=== PATIENT | female | born 1980 | race Caucasian/White ===

== ENCOUNTER → 2019-01-17 | Outpatient (CLI) | payer MEDICAID, OTHER ==
[~2019-01-17] MED LIST: BUSP10TA PO; ESCITALOPRAM OX20 MG PO; MELO15TA23 PO; TRAM50TA PO
== END | disposition home or self-care (01) ==
LOC: PNCL 10:13
PROVIDERS: ATTEND Anesthesiology
DX: M54.5 Low back pain (principal)
CPT/HCPCS: G0463

== ENCOUNTER → 2019-03-07 | Outpatient (CLI) | payer MEDICAID, OTHER ==
--- NOTE | 2019-03-07 20:11 | PAIN ---
DATE OF SERVICE: 03/07/2019 INITIAL CONSULTATION FOR PAIN CLINIC CHIEF COMPLAINT: Low back and right lower extremity pain. HISTORY OF PRESENT ILLNESS: This is a 38-year-old female who presents with history of pain, low back, right lower extremity since 12/19/2018. She was working at work was pulling a pallet chapincito, which was difficult and when it moved, she had significant pain in her low back and right leg. The patient reports after that time, the pain began radiating in the posterior gluteus, posterior thigh, posterior calf, into the foot and toes with numbness and tingling in the feet as well. The patient reports it is constant, sharp, stabbing, throbbing, shooting, radiating, worse with walking, standing, changing positions, awakens her from sleep at least 3-4 times a night. Does not affect her bowel or bladder control, but does affect her ability to walk, it gives significant fatigability of the right lower extremity. The patient reports no loss of motor function, but significant fatigue even after about 5-10 minutes, being on her feet or standing and walking. The patient did have an MRI scan of the lumbar spine showing L5-S1 right focal paracentral disk protrusion with exerting mass effect upon the right S1 nerve root with mild right foraminal stenosis. The patient rates her disability from 0-10, 10 being the worst, as an 8 in all categories, family home responsibilities, recreation, social activity, sexual behavior, occupation, self-care and life support activities. The patient reports no loss of motor function, no bowel or bladder incontinence with significant pain and fatigue in the right leg. PAST MEDICAL HISTORY: Significant for only cigarette smoking about 3 cigarettes a day for 10 years. Otherwise, the patient has been in relatively good health. PAST SURGICAL HISTORY: No previous surgeries. CURRENT MEDICATIONS: Include escitalopram, buspirone, tramadol and meloxicam. ALLERGIES: The patient has no known drug allergies. She has had physical therapy in the past as well as doing exercise currently without significant improvement in the pain and continues to exercise as well as walking and riding a bike currently. The patient has tried tramadol, which helps, but only by about 20%. FAMILY HISTORY: Significant for lupus and rheumatoid arthritis both in the patient's sisters. SOCIAL HISTORY: The patient does not drink alcohol. Smokes 3 cigarettes a day for the past 10 years. Denies any illegal, illicit or recreational drugs. She is single, lives locally in [place], [place]. Works at [employer]. REVIEW OF SYSTEMS: The patient's review of systems is positive for those items mentioned in history of present illness. All systems reviewed and otherwise negative. It is complete, full and well documented on the patient's chart. PHYSICAL EXAMINATION: VITAL SIGNS: The patient's blood pressure is 106/55, pulse rate is 53, respirations 18, temperature is 97.4 degrees Fahrenheit. Height is 5 feet 7 inches, weighs 174 pounds. GENERAL: The patient is awake, alert, oriented, appropriate, very pleasant demeanor. HEENT: Head shows normocephalic, atraumatic. Extraocular movements are intact and symmetrical. Oral cavity: Mucous membranes moist and pink. Dentition is intact. NECK: Shows anterior throat supple without palpable lymphadenopathy noted. Swallow reflex symmetrical. CHEST: Shows normal on inspection. Breath sounds clear to auscultation bilaterally. HEART: Shows S1, S2 clear. No murmurs auscultated. ABDOMEN: Soft, nontender, nondistended. No palpable organomegaly is noted. No rebound or guarding demonstrated. BACK: Shows spine grossly in the midline. Normal appearing thoracic kyphosis and lumbar lordotic curvature. Lumbar paraspinous muscle shows symmetrical on inspection, on palpation shows some moderate tenderness diffusely bilaterally, but only diffusely without significant radiation. The patient shows good rotational motion of lumbar spine, both laterally greater than 10 degrees right and left as well as extension greater than 10 degrees, forward flexion 45 degrees without significant pain reported. EXTREMITIES: The patient's lower extremities show deep tendon reflexes 2+ in the patellar, 1+ tendo-calcaneus tendons. Motor exam is approximately 4 on a scale of 5 on the right and 5/5 on the left dorsiflexion, extension, quadriceps and hamstring flexion. Peripheral pulses are 1+ posterior tibia. No peripheral edema is noted bilaterally. The patient does have a positive straight leg raise on the right about 35 degrees, decreased with knee flexion, but not relieved completely. Left side is negative. Gaenslen's and Luis F's maneuvers are negative bilaterally. The patient is able to stand, stand on her toes without difficulty or loss of balance, walks with a normal appearing gait for short distance in the office today, not using any assistive devices to ambulate. SKIN: Shows warm and dry, good turgor. No edema. No sores, rashes or bruising throughout. Options were discussed with the patient. The patient's old chart was reviewed. Her current medication regimen updated. Current review of systems updated today as well. IMPRESSION: 1. This is a 38-year-old female with approximate 2-1/2 month history of pain while at work, pulling a pallet chapincito with radicular pain in the L5-S1 dermatomal distribution on the right lower extremity with clinical lumbar radiculopathy. 2. MRI scan of lumbar spine as noted. 3. Cigarette smoking. PLAN: Options were discussed with the patient including conservative medical management, physical therapy, interventional techniques and she is doing physical therapies and stretching on her own. She would like to pursue interventional techniques. We discussed a lumbar epidural steroid injection using description as well as anatomical models to describe the procedure. The patient will wait for preauthorization with her insurance provider. In the meantime, we will try Medrol Dosepak. The patient was given instruction as well as side effects to be aware of with the medication and will follow up in approximately one week. We will plan on lumbar epidural steroid injection at that time at the L5-S1 level for L5-S1, right-sided radicular pain. LINDA LOPEZ MD DR: DEVANG/trixie JOB#: [id number] / [id number]
== END | disposition home or self-care (01) ==
LOC: PNCL 10:47
PROVIDERS: ATTEND Anesthesiology
DX: M54.16 Radiculopathy, lumbar region (principal); F17.210 Nicotine dependence, cigarettes, uncomplicated; Z79.899 Other long term (current) drug therapy
CPT/HCPCS: G0463

== ENCOUNTER → 2019-03-21 | Outpatient (CLI) | payer OTHER ==
[~2019-03-21] MED LIST changes: +IOHEXOL 180 MG/ML 10 ML VIAL. ONE; +methylPREDNISolone ACETATE 40 MG/ML VIAL. ONE; +methylPREDNISolone ACETATE 80 MG/ML VIAL. ONE
--- NOTE | 2019-03-22 15:12 | PAIN ---
DATE OF SERVICE: 03/21/2019 PROGRESS NOTE FOR PAIN CLINIC DIAGNOSES: Lumbar radiculopathy with lumbar degenerative disk disease and lumbar herniated disk. HISTORY OF PRESENT ILLNESS: The patient is a 38-year-old female, who returns for followup, status post initial evaluation and preauthorization for epidural steroid injection that she has obtained and would like to proceed today, still complaining of pain in the low back, right lower extremity, posterior gluteus, posterior thigh, posterior calf, radiating, aching, sharp and dull in description, with shooting pain, constant, becoming more severe, more unbearable with walking and standing, better with sitting or lying down. The patient reports it still awakens her from sleep about every 6 hours. No new motor or sensory deficits, no new bowel or bladder incontinence. The patient reports the pain is a 10 on scale of 10 at its worst over the past week, 8 on average and 8 at its least, and is 8 today. PHYSICAL EXAMINATION: VITAL SIGNS: The patient's blood pressure 120/57, pulse 62, respirations 18, temperature 98.2 degree Fahrenheit, height is 5 feet 7 inches, and she weighs 170 pounds. GENERAL: The patient is awake, alert, oriented, appropriate, very pleasant demeanor. HEENT: Shows normocephalic, atraumatic. Extraocular movements are intact and symmetrical. Oral cavity: Mucous membranes moist and pink. Dentition is intact. NECK: Shows anterior throat supple without palpable lymphadenopathy noted. Swallow reflex is symmetrical. CHEST: Shows normal on inspection. Breath sounds are clear to auscultation bilaterally. HEART: Shows S1, S2 clear. No murmurs auscultated. ABDOMEN: Soft, nontender, nondistended. MUSCULOSKELETAL: Back shows spine grossly in the midline. Lumbar paraspinous muscle shows symmetrical on inspection, with palpation some moderate tenderness diffusely in the low lumbar distribution, more on the right than the left, but without specific trigger points or radiation. The patient's lower extremities show deep tendon reflexes at 2+ in the patellar, 1+ tendo-calcaneus tendons. Motor exam is approximately 4 on a scale of 5 on the right, 5/5 on the left with dorsiflexion and extension. Peripheral pulses are 1+ posterior tibia. No peripheral edema is noted bilaterally. IMPRESSION AND PLAN: Options were discussed with the patient. The patient's old chart was reviewed as her current medication regimen updated. Current review of systems updated today as well. We will proceed with a lumbar epidural steroid injection today with fluoroscopic guidance. Risks were again discussed including but not limited to bleeding, infection, possibility of epidural hematoma, subsequent neurological compromise, dural puncture, headaches, spinal cord and/or nerve damage, side effects of steroid medication, and poor results regarding pain control. The patient understands and wished to proceed. The patient will return to clinic in approximately 2 weeks for followup. She was counseled on return appointment, activity level, and side effects to be aware of. DIAGNOSES: Lumbar radiculopathy with lumbar degenerative disk disease and lumbar herniated disk. PROCEDURE: Lumbar epidural steroid injection, translaminar approach at the L5-S1 level using C-arm fluoroscopic guidance, under sterile prep and drape using local anesthetic. MEDICATION INJECTED: A total of 120 mg Depo-Medrol plus 10 mL of preservative-free normal saline and 2 mL ____ contrast. CONDITION AT DISCHARGE: Stable. The patient tolerated procedure well, had no complications. LINDA LOPEZ MD DR: DEVANG/trixie JOB#: [id number] / [id number]
== END ==
LOC: PNCL 14:20
PROVIDERS: ATTEND Anesthesiology
DX: M51.16 Intervertebral disc disorders with radiculopathy, lumbar region (principal)
CPT/HCPCS: 62323; J1030; J1040; Q9965

== ENCOUNTER 2020-08-30 23:34 | Emergency (ER) | payer OTHER ==
[~2020-08-30] VITALS: Ht 170.2 cm; Wt 60.9 kg
[~2020-08-30 23:34] MED LIST changes: -IOHEXOL 180 MG/ML 10 ML VIAL. ONE; -methylPREDNISolone ACETATE 40 MG/ML VIAL. ONE; -methylPREDNISolone ACETATE 80 MG/ML VIAL. ONE
[2020-08-31] MEDS ORDERED: VANCOMYCIN PER PHARMACY MC PRN
--- NOTE | 2020-08-31 00:07 | PHYS DOC ---
Past Medical History Past Medical History: Anxiety Additional Past Medical Histor: ADHD Past Surgical History: No Surgical History Smoking Status: Current Every Day Smoker Alcohol Use: Occasionally General Adult EDM: Chief Complaint: DYSPNEA/RESPIRATORY DISTRESS HPI: HPI: 40-year-old female past medical history significant for anxiety, ADHD and lumbar degenerative disc disease/herniated disc, presents the ED with complaints of sudden onset left ear pain that woke patient up approximately 2 days ago stating " I feel as if something is in there," reports associated subjective fever and chills and headache. Pt cannot recall any specific trauma or skin break to the ear, states she woke up with the pain. History of Covid. Denies any recent Q- tip use. No history of IV drug use or alcohol abuse, occasional marijuana use. Reports a warm rash behind her left ear, did not present with any vesicular or blistering lesions. No history of shingles or varicella. Denies any hearing loss, dizziness or difficulties walking. Denies any ear drainage (no blood /pus), history of immunocompromised state including diabetes, HIV or chronic daily steroid use. Review of Systems: Review of Systems: Constitutional: Denies chills, fatigue Eyes: Denies change in visual acuity. [] HENT: Denies nasal congestion or sore throat. [] Respiratory: Denies cough or shortness of breath. [] Cardiovascular: Denies chest pain or edema. [] GI: Denies abdominal pain, nausea, vomiting, bloody stools or diarrhea. [] : Denies dysuria. [] Musculoskeletal: Denies back pain or joint pain. [] Integument: Denies rash. [] Neurologic: Denies headache, focal weakness or sensory changes. [] Endocrine: Denies polyuria or polydipsia. [] Lymphatic: Denies swollen glands. [] Psychiatric: Denies depression or anxiety. [] Heart Score: Risk Factors: Risk Factors: DM, Current or recent (<one month) smoker, HTN, HLP, family history of CAD, obesity. Risk Scores: Score 0 - 3: 2.5% MACE over next 6 weeks - Discharge Home Score 4 - 6: 20.3% MACE over next 6 weeks - Admit for Clinical Observation Score 7 - 10: 72.7% MACE over next 6 weeks - Early Invasive Strategies Current Medications: Current Medications Medications (Trade) Dose Ordered Sig/Kem Start Time Stop Time Status Last Admin Dose Admin Ceftriaxone Sodium (Rocephin) 1 gm 1X ONCE 08/31/20 00:00 08/31/20 00:01 UNV Ketorolac Tromethamine (Toradol 15mg Vial) 15 mg 1X ONCE 08/31/20 00:00 08/31/20 00:01 UNV Lidocaine HCl (Viscous Lidocaine) 5 ml 1X ONCE 08/31/20 00:00 08/31/20 00:01 UNV Sodium Chloride 1,000 ml @ 1,000 mls/hr 1X ONCE 08/31/20 00:00 08/31/20 00:59 UNV Vancomycin HCl (Vanco Per Pharmacy) 1 each PRN DAILY PRN 08/31/20 00:00 UNV Allergies: Allergies: Allergies Coded Allergies Type Severity Reaction Last Updated Verified No Known Drug Allergies 09/06/17 No Physical Exam: PE: Constitutional: afebrile, pacing, uncomfortable, irritable/unkept appearance-does not appear to take care of self well (homeless? drugs?) HENT: Normocephalic, atraumatic, right tympanic membrane normal, no erythema or effusion, normal oropharynx with no exudates, dry mucous membranes with white lesions on tongue-thrush?, left tm with very mild erythema (early EM?), erythema with moist topical white lesion (rey?) just posterior to left auricular crease over mid-aurical and down to mastoid with underlying erythema, pinna slightly red and tender to the touch, no obliteration of postauricular crease, left mastoid tenderness, no ear FBs Eyes: EOMI, conjunctiva normal, no discharge. Neck: Normal range of motion, supple, Cardiovascular: S1/2 present, regular rhythm Lungs & Thorax: Speaking in full sentences, bilateral equal chest rise, no tachypnea or increased work of breathing Abdomen: soft, no tenderness, Skin: Warm, dry, no erythema, no rash. [] Back: No tenderness, no CVA tenderness. [] Extremities: No tenderness, no cyanosis, no edema Neurologic: Alert and oriented X 3, normal motor function, normal sensory function, no focal deficits noted. [] Psychologic: Affect normal, disorganized judgment but easily redirected and oriented, mood-very anxious and pacing in room Current Patient Data: Vital Signs: Vital Signs Date Time Temp Pulse Resp B/P (MAP) Pulse Ox O2 Delivery O2 Flow Rate FiO2 08/30/20 23:40 97.9 96 13 139/65 (89) 99 Room Air 97.9 EKG: EKG: [] Radiology/Procedures: Radiology/Procedures: IMAGING REPORT Signed PATIENT: BEE LOOMIS DACCOUNT: [id number] : 1980 LOCATION: ER AGE: 40 SEX: F EXAM STATUS: PRE ER ORD. PHYSICIAN: ADDISON PETERSEN DO REASON: headache PROCEDURE: CT HEAD WO CONTRAST PQRS Compliance Statement: One or more of the following individualized dose reduction techniques were utilized for this examination: 1. Automated exposure control 2. Adjustment of the mA and/or kV according to patient size 3. Use of iterative reconstruction technique CT head without contrast 08/31/2020 12:[address] maxillofacial with contrast INDICATION: Mastoid tenderness with erythema and cellulitis. Otitis media. COMPARISON: None available TECHNIQUE: Multiple axial CT images of the head were obtained from skull base through the vertex without intravenous contrast. Multiple axial CT images of the maxillofacial structures were obtained with intravenous contrast. Coronal and sagittal reformats are provided. FINDINGS: Head and maxillofacial: Ventricles, sulci and basal cisterns are within normal limits. There is no hydrocephalus. Mackenzie-white matter differentiation is normal. There is no acute intracranial hemorrhage. There is no mass, mass effect or midline shift. Posterior fossa is normal in appearance. Osseous orbits are intact. Globes are spherical and contour. There is no lens dislocation. Extraocular muscles are intact. No intraconal or extraconal mass is identified. Skull base is intact. Nasal bones are intact. Nasal septum is deviated to the right measuring 8 mm with associated nasal spur. Small mucus retention cyst is identified in the right maxillary sinus. No acute fracture of the paranasal sinuses is identified. Pterygoid plates are intact. Temporomandibular joints are well aligned. Mastoid air cells are well aerated. Middle ear cavities are well aerated. Visualized nasopharynx and oropharynx are intact. Soft tissues are normal. Maxilla and mandible are intact. Visualized dentition appear normal. IMPRESSION: 1. No acute intracranial hemorrhage. 2. No acute fracture of the maxillofacial structures. No mastoid effusion or middle ear effusion. Electronically signed by: Dolly Powell MD (08/31/2020 1:44 AM) [facility] DICTATED and SIGNED BY: DOLLY POWELL MD DATE: 08/31/20 [id number] 0 Course & Med Decision Making: Course & Med Decision Making Pertinent Labs and Imaging studies reviewed. (See chart for details) Concern for cellulitis of left posterior ear with pinna tenderness/mild erythema and mild tympanic membrane erythema-we will cover for cellulitis, perichondritis and left otitis media. Hx likely limited to polysubstance abuse. Ovation patient sleeping comfortably and in no distress-suspect intoxication on arrival. Patient afebrile with no leukocytosis, not toxic appearing. Mild hypokalemia of 3.2. Will discharge home with strict ED return precautions were given for headache, nuchal rigidity, fever, neurologic deficits, hearing loss or vertigo. Encouraged urgent outpatient follow-up with PMD and ent for definitive management. Life-threatening processes were considered but are low suspicion at this time, given history, physical exam and ED workup. Pt was educated on all prescription medications and adverse effects. All patient's questions were answered and pt was stable at time of discharge. Life/limb-threatening differential includes but is not limited to, auricular hematoma or perichondritis, malignant otitis externa, otitis externa or media, otomycosis, bullous myringitis, mastoiditis, hearing loss or vestibular di sorder, tympanic membrane rupture/perforation/barotrauma, herpes zoster oticus, contact dermatitis, cholesteatoma, meningitis, brain abscess or venous/cavernous/cerebral sinus thrombosis. I spoken with the patient and her caregivers. I explained the patient's condition, diagnoses and treatment plan based on the information available to me at this time. I have answered the patient and her caregiver's questions and addressed any concerns. The patient and her caregivers have a good understanding of patient's diagnosis, condition and treatment plan as can be expected at this point. Vital signs have been stable. Patient's condition is stable and appropriate for discharge from the emergency department. Patient will pursue further outpatient evaluation with primary care physician or other designated or consulting physician as outlined in the discharge instructions. The patient and/or caregivers are agreeable to this plan of care and follow-up instructions have been explained in detail. The patient and/or c aregivers have received these instructions in written form and have expressed an understanding of the discharge instructions. The patient and/or caregivers are aware that any significant change of condition or worsening of symptoms should prompt immediate return to this or the closest emergency department or call to 911Allyson Ceja Disclaimer: Brenna Disclaimer: This electronic medical record was generated, in whole or in part, using a voice recognition dictation system. Departure Departure Impression: Primary Impression: Perichondritis of external ear Additional Impressions: Polysubstance abuse Otitis media of left ear Perichondritis and chondritis of left pinna Disposition: 01 DC HOME SELF CARE/HOMELESS Condition: STABLE Referrals: EMILIA GONZALEZ MD (PCP) For reevaluation in 2 to 5 days Patient Instructions: Cellulitis, Otitis Media, Adult Additional Instructions: FOLLOW UP WITH ENT: For definitive management this condition Otolaryngology Address: [address] [place] [address], [address] [place] [address] [employer] [facility] Address: [address] [place] [address] EMERGENCY DEPARTMENT GENERAL DISCHARGE INSTRUCTIONS Thank you for coming to [facility] Emergency Department (ED) today and trusting us with you care. We trust that you had a positive experience in our Emergency Department. If you wish to speak to the department management, you may call the Director at [phone]. YOUR FOLLOW UP INSTRUCTIONS ARE FOLLOWS: 1. Do you have a private Doctor? If you do not have a private doctor, please ask for a resource list of physicians or clinics that may be able to assist you with follow up care. 2. The Emergency Physicain has interpreted your x-rays. The X-Ray specialist will also review them. If there is a change in the findings, you will be notified in 48 hours when at all possible. 3. A lab test or culture has been done, your results will be reviewed and you will be notified if you need a change in treatment. ADDITIONAL INSTRUCTIONS AND INFORMATION: 1. Your care today has been supervised by a physician who is specially trained in emergency care. Many problems require more than one evaluation for a complete diagnosis and treatment. We recommend that you schedule your follow up appointment as recommended to ensure complete treatment of you illness or injury. If you are unable to obtain follow up care and continue to have a problem, or if your condition worsens, we recommend that you return to the ED. 2. We are not able to safely determine your condition over the phone nor are we able to give sound medical advice over the phone. For these safety reasons, if you call for medical advice we will ask you to come to the ED for further evaluation. 3. If you have any questions regarding these discharge instructions please call the ED at [phone]. SAFETY INFORMATION: In the interest of safety, wellness, and injury prevention; we encourage you to wear your sealbelt, if you smoke; quite smoking, and we encourage family to use a protective helmet for bicycling and other sporting events that present an increased risk for head injury. IF YOUR SYMPTOMS WORSEN OR NEW SYMPTOMS DEVELOP, OR YOU HAVE CONCERNS ABOUT YOUR CONDITION; OR IF YOUR CONDITION WORSENS WHILE YOU ARE WAITING FOR YOUR FOLLOW UP APPOINTMENT; EITHER CONTACT YOUR PRIMARY CARE DOCTOR, THE PHYSICIAN WHOSE NAME AND NUMBER YOU WERE GIVEN, OR RETURN TO THE ED IMMEDIATELY. Scripts Ciprofloxacin Hcl (CIPROFLOXACIN HCL) 750 Mg Tablet 750 MG PO BID for 10 Days, #20 TAB Prov: ADDISON PETERSEN DO 08/31/20 Cefpodoxime Proxetil (CEFPODOXIME PROXETIL) 200 Mg Tablet 1 TAB PO BID for 10 Days, #20 TAB Prov: ADDISON PETERSEN DO 08/31/20 ADDISON PETERSEN DO Aug 31, 2020 00:07
[2020-08-31 00:15] LABS: BASO # 0.1 x10^3/uL (0.0-0.2); BASO % 1 % (0-3); EOS # 0.2 x10^3/uL (0.0-0.7); EOS % 2 % (0-3); HEMATOCRIT 37.6 % (36.0-47.0); HEMOGLOBIN 13.2 g/dL (12.0-15.5); LYMPH # 2.6 x10^3/uL (1.0-4.8); LYMPH % 29 % (24-48); MEAN CORPUSCULAR HEMOGLOBIN 33 pg (25-35); MEAN CORPUSCULAR HGB CONC 35 g/dL (31-37); MEAN CORPUSCULAR VOLUME 93 fL (79-100); MONO # 0.8 x10^3/uL (0.0-1.1); MONO % 9 % (0-9); NEUT # 5.5 x10^3/uL (1.8-7.7); NEUT % 60 % (31-73); PLATELET COUNT 274 x10^3/uL (140-400); RED BLOOD COUNT 4.05 x10^6/uL (3.50-5.40); RED CELL DISTRIBUTION WIDTH 13.4 % (11.5-14.5); WHITE BLOOD COUNT 9.2 x10^3/uL (4.0-11.0)
[2020-08-31] MEDS ORDERED: cefTRIAXone IV Push 1 GM VIAL. IVP ONE (00:15)
[2020-08-31] MEDS ORDERED: IV NORMAL SALINE 1000ML BAG 1,000 ML IV ONE (00:15)
[2020-08-31] MEDS ORDERED: KETOROLAC 15 MG/ML VIAL. IVP ONE (00:15)
[2020-08-31] MEDS ORDERED: LIDOCAINE 2% VISCOUS 15 ML SOLUTION. SWSW ONE (00:15)
[2020-08-31 00:22] LABS: CALCIUM 8.5 mg/dL (8.5-10.1); GFR 62.1; POTASSIUM 3.2 mmol/L (3.5-5.1)
[2020-08-31 00:23] LABS: BARBITURATES NEG (NEG); BENZODIAZEPINES NEG (NEG); CANNABINOIDS POS (NEG); COCAINE NEG (NEG); METHADONE NEG (NEG); OPIATES POS (NEG); PHENCYCLIDINE NEG (NEG)
[2020-08-31 00:25] LABS: AMPHETAMINE/METHAMPHETAMINE POS (NEG)
[2020-08-31] MEDS ORDERED: VANCOMYCIN 1.5 GM in IV NORMAL SALINE 500ML BAG 500 ML IV ONE (00:30)
[2020-08-31] MEDS ORDERED: IOHEXOL 300 MG/ML 100ML VIAL. IV ONE (00:45)
[2020-08-31] MEDS ORDERED: CONTRAST GIVEN. MC PRN (00:45)
[2020-08-31] MEDS ORDERED: POTASSIUM BICARB 20 MEQ EFFERVESCENT TABLET. PO ONE (01:30)
--- NOTE | 2020-08-31 01:47 | RAD ---
PQRS Compliance Statement: One or more of the following individualized dose reduction techniques were utilized for this examinat ion: 1. Automated exposure control 2. Adjustment of the mA and/or kV according to patient size 3. Use of iterative reconstruction technique CT head without contrast 08/31/2020 12:[address] maxillofacial with contrast INDICATION: Mastoid tenderness with erythema and cellulitis. Otitis media. COMPARISON: None available TECHNIQUE: Multiple axial CT images of the head were obtained from skull base through the vertex with out intravenous contrast. Multiple axial CT images of the maxillofacial structures were obtained with intravenous contrast. Coronal and sagittal reformats are provided. FINDINGS: Head and maxillofacial: Ventricles, sulci and basal cisterns are within normal limits. There is no hydrocephalus. Mackenzie-white matter differentiation is normal. There is no acute intracranial hemorrhage. There is no mass, mass e ffect or midline shift. Posterior fossa is normal in appearance. Osseous orbits are intact. Globes are spherical and contour. There is no lens dislocation. Extraocula r muscles are intact. No intraconal or extraconal mass is identified. Skull base is intact. Nasal bones are intact. Nasal septum is deviated to the right measuring 8 mm with associated nasal sp ur. Small mucus retention cyst is identified in the right maxillary sinus. No acute fracture of the p aranasal sinuses is identified. Pterygoid plates are intact. Temporomandibular joints are well aligned. Mastoid air cells are well aerated. Middle ear cavities ar e well aerated. Visualized nasopharynx and oropharynx are intact. Soft tissues are normal. Maxilla and mandible are intact. Visualized dentition appear normal. IMPRESSION: 1. No acute intracranial hemorrhage. 2. No acute fracture of the maxillofacial structures. No mastoid effusion or middle ear effusion. Electronically signed by: Keyla Boyd MD (08/31/2020 1:44 AM) [facility]
[2020-08-31] MEDS ORDERED: CEFP200T PO ×2 (02:51→02:57)
[2020-08-31] MEDS ORDERED: CIPR750T PO (02:57)
[2020-08-31 03:10] VITALS: BP 133/63
== END 2020-08-31 03:10 | disposition home or self-care (01) ==
LOC: ER 23:34
DX: H61.002 Unspecified perichondritis of left external ear (principal); H66.92 Otitis media, unspecified, left ear; F19.10 Other psychoactive substance abuse, uncomplicated; R51.9 Headache, unspecified; F17.200 Nicotine dependence, unspecified, uncomplicated; F90.9 Attention-deficit hyperactivity disorder, unspecified type
CPT/HCPCS: 36415; 70450; 70487; 80048; 80307; 81025; 85025; 96365; 96375; 99285; J0696; J1885; J3370; J7030; J7040; Q9967